=== PATIENT | male | born 1950 ===

== ENCOUNTER 2018-12-21 12:18 | Inpatient (IN) | payer MEDICARE, OTHER ==
[2018-12-21 13:23] LABS: BASO # 0.1 K/uL (0.0-0.2); BASO % 0.5 % (0.0-2.0); EOS % 0.3 % (0.0-4.0); LYMPH # 1.2 K/uL (1.0-4.3); LYMPH % 8.8 % (20.0-40.0); MEAN CELL VOLUME 87.7 fl (80.0-94.0); MEAN CORPUSCULAR HEMOGLOBIN 30.7 pg (27.0-31.0); MEAN PLATELET VOLUME 8.6 fl (7.2-11.7); MONO # 0.8 K/uL (0.0-0.8); MONO % 6.1 % (0.0-10.0); NEUT % 84.3 % (50.0-75.0); PLATELET COUNT 422 K/uL (130-400); RBC 5.53 Mil/uL (4.40-5.90); RED CELL DISTRIBUTION WIDTH 13.6 % (11.5-14.5); WHITE BLOOD COUNT 13.1 K/uL (4.8-10.8)
[2018-12-21 13:23] LABS: VENOUS BLOOD GAS BASE EXCESS 4.4 mmol/L (0.0-2.0); VENOUS BLOOD GAS PCO2 55 mmHg (40-60); VENOUS BLOOD GAS PO2 21 mm/Hg (30-55); VENOUS BLOOD PH 7.37 (7.32-7.43)
[2018-12-21] MEDS: Sodium Chloride 0.9% 1,000 ML IV SCH ×3 (13:28→21:53)
--- NOTE | 2018-12-21 13:34 | ED PDOC ---
HPI: Abdomen Time Seen by Provider: 12/21/18 13:28 Chief Complaint (Nursing): Abdominal Pain Chief Complaint (Provider): Abdominal Pain History Per: Family History/Exam Limitations: no limitations Onset/Duration Of Symptoms: Days Current Symptoms Are (Timing): Still Present Associated Symptoms: Loss Of Appetite Additional Complaint(s): 68 year old male with a past medical history of CVA, aphasia, hypertension, diabetes, and hypercholesterolemia who is presenting to the ED with sister for evaluation. Patient is nonverbal at baseline and history id provided by sister who reports 2.5 weeks of vomiting and diarrhea associated with decreased a ppetite, 15lb weight loss, and alcohol consumption. Patient is noted to live by himself and due to aphasia and stubbornness, doesnt tell anyone when things are wrong. Sister adds that patient was seen by PMD today and was sent to the ED. She also admits that patient has had a wet cough for a few months and PMD was concerned for fluid in the lungs. Patient offers no history and denies all complaints at this time. Of note, sister states that patient is noncompliant with his medications. PMD: Dr. Heaton Past Medical History Reviewed: Historical Data, Nursing Documentation, Vital Signs Vital Signs: Last Vital Signs Temp 98.0 F 12/21/18 12:35 Pulse 87 12/21/18 12:35 Resp 16 12/21/18 12:35 BP 162/94 H 12/21/18 12:35 Pulse Ox 96 12/21/18 12:35 - Medical History PMH: Arthritis, HTN, Hypercholesterolemia, TIA Denies: Colonic Polyps - Surgical History Surgical History: Tonsillectomy - Family History Family History: States: Unknown Family Hx - Social History Current smoker - smoking cessation education provided: No Alcohol: Social Drugs: Denies - Home Medications Home Medications: Ambulatory Orders Medication Instructions Recorded Aspirin [Ecotrin] 81 mg PO DAILY 02/13/16 Simvastatin 40 mg PO HS 02/13/16 metFORMIN [glucOPHAGE] 500 mg PO BID 02/13/16 Atenolol/Chlorthalidone [Tenoretic 1 tab PO DAILY 12/21/18 50 Tablet] Ergocalciferol (Vitamin D2) 50,000 unit PO QWK 12/21/18 [Vitamin D2] Fenofibrate,Micronized 200 mg PO DAILY 12/21/18 [Fenofibrate] Ferrous Sulfate [Feosol] 325 mg PO BID 12/21/18 Icosapent Ethyl [Vascepa] 2 gm PO DAILY 12/21/18 Levocetirizine Dihydrochloride 5 mg PO HS 12/21/18 [Xyzal] Losartan [Cozaar] 50 mg PO DAILY 12/21/18 Multivitamin [Multi-Vitamin Daily] 1 tab PO DAILY 12/21/18 Ondansetron [Zofran Tab] 4 mg PO DAILY PRN 12/21/18 Sertraline [Zoloft] 50 mg PO DAILY 12/21/18 amLODIPine [Norvasc] 10 mg PO DAILY 12/21/18 - Allergies Allergies/Adverse Reactions: Allergies Allergy/AdvReac Type Severity Reaction Status Date / Time Penicillins Allergy SHORTNESS Verified 12/21/18 12:35 OF BREATH Review of Systems ROS Statement: Except As Marked, All Systems Reviewed And Found Negative Review Of Systems: ROS cannot be obtained secondary to pt's inabilty to answer questions. (patient is nonverbal and offers no complaints, is a poor historian) Gastrointestinal: Positive for: Vomiting, Diarrhea Physical Exam - Reviewed Nursing Documentation Reviewed: Yes Vital Signs Reviewed: Yes - Physical Exam Comments: GENERAL APPEARANCE: Patient is awake, alert, oriented x 3, in no acute distress. Patient is also nonverbal at baseline SKIN: Warm, dry; (-) cyanosis HEAD: (-) scalp swelling, (-) scalp tenderness. EYES: (-) conjunctival pallor, (-) scleral icterus, (-) nystagmus. ENMT: Mucous membranes moist. Airway patent: (-) stridor. NECK: (-) tenderness, (-) stiffness, (-) lymphadenopathy. HEART AND CARDIOVASCULAR: (-) irregularity; (-) murmur, (-) gallop. CHEST AND RESPIRATORY: (-) rales, (-) rhonchi, (-) wheezes; breath sounds equal. ABDOMEN: Soft, (-) distention, (-) tenderness, (-) guarding. (+) mild tenderness Left Lower Quadrant NEURO AND PSYCH: Mental status as above. tablet repair: Intact. Pupils equal and reactive; EOMI; (-) facial asymmetry; tongue and uvula midline. Strength and DTRs symmetric. - Laboratory Results Result Diagrams: 12/21/18 13:10 12/21/18 13:10 Lab Results: pO2 21 mm/Hg (30-55) L 12/21/18 13:09 VBG pH 7.37 (7.32-7.43) 12/21/18 13:09 VBG pCO2 55 mmHg (40-60) 12/21/18 13:09 VBG HCO3 26.0 mmol/L 12/21/18 13:09 VBG Total CO2 33.5 mmol/L (22-28) H 12/21/18 13:09 VBG O2 Sat (Calc) 36.3 % (40-65) L 12/21/18 13:09 VBG Base Excess 4.4 mmol/L (0.0-2.0) H 12/21/18 13:09 VBG Potassium 4.1 mmol/L (3.6-5.2) 12/21/18 13:09 Sodium 132.0 mmol/L (132-148) 12/21/18 13:09 Chloride 94.0 mmol/L (98-107) L 12/21/18 13:09 Glucose 164 mg/dL (75-110) H 12/21/18 13:09 Lactate 1.6 mmol/L (0.7-2.1) 12/21/18 13:09 FiO2 21.0 % 12/21/18 13:09 - ECG O2 Sat by Pulse Oximetry: 96 (RA) Pulse Ox Interpretation: Normal Medical Decision Making Medical Decision Making: Time: 13:10 Plan: --VBG --CT Abd/Pelvis --EKG --Alcohol Serum --CMP --Lipase --CBC --CXR --IV Fluids --Urinalysis Spoke to Dr. Heaton who agrees with workup and states he will be most likely admitted and to call back once results are back. 14:12 CXR HISTORY: cough COMPARISON: None available. TECHNIQUE: Chest PA and lateral, 2 views FINDINGS: LUNGS: No focal consolidation. Please note that chest x-ray has limited sensitivity for the detection of pulmonary masses. PLEURA: No significant pleural effusion identified. No definite pneumothorax . CARDIOVASCULAR: Heart size appears within normal limits. Aortic ectasia. Atherosclerotic calcifications of the aortic knob. OSSEOUS STRUCTURES: No acute osseous abnormality identified. VISUALIZED UPPER ABDOMEN: Unremarkable. OTHER FINDINGS: None. IMPRESSION: No focal consolidation identified. 1500 Date of service: 12/21/2018 PROCEDURE: CT Abdomen and Pelvis with contrast HISTORY: n/v/d LLQ tenderness COMPARISON: None. TECHNIQUE: Contrast dose: 100 mL of Omnipaque 300 Radiation dose: Total exam DLP = 359.1 mGy-cm. This CT exam was performed using one or more of the following dose reduction techniques: Automated exposure control, adjustment of the mA and/or kV according to patient size, and/or use of iterative reconstruction technique. FINDINGS: LOWER THORAX: Large hiatal hernia noted. LIVER: Diffuse hepatic steatosis suggested. No gross lesion or ductal dilatation. GALLBLADDER AND BILE DUCTS: Unremarkable. PANCREAS: Bordering the pancreas are circumferential duodenal mural thickening and Lisa duodenal/Lisa pancreatic fat edema/inflammatory changes. Neoplastic and/or infectious inflammatory etiology of this gastric antral-duodenal segment needs to be considered. The 2nd and 3rd duodenal segments are also dilated. No more distal obstructing mass at the duodenal jejunal junction is seen. No gross lesion or ductal dilatation. SPLEEN: Unremarkable. ADRENALS: Unremarkable. No mass. A 2 cm left posterior renal cortical cyst is suggested. A sub cm hypodensity in the midpole the right kidney small to accurately characterize is also noted. This also may be a renal cyst. An ultrasound may be helpful in its further characterisation. KIDNEYS AND URETERS: No hydronephrosis. VASCULATURE: Unremarkable. No aortic aneurysm. No aortic atherosclerotic calcification or mural plaque present. BOWEL: Please note the above regarding the gastric antrum and and blending duodenal segments where circumferential mural thickening and Lisa mural edema/an inflammatory like changes are suggested. No complete obstruction seen. However mild partial obstruction from the mural changes at the approximate the 3rd duodenal segment with the 4 segment is a consideration. Rectosigmoid redundancy. Moderate stool in the right colon. Portion of the appendix and the distal small bowel loops are within a right groin herniated sac. Attention of the herniated sac is not fully visualized the most inferior aspect-this is going towards the right scrotal sac. There appears to be an after fair in and E fair in loop here. There is also some fluid within this right groin herniated sac. No proximal dilatation is seen to suggest obstruction. The neck of the right groin hernia appears wide at 3.5 cm on coronal series 601, image 42 is estimated to be approximately 2 cm wide in the left groin. A small knuckle of large bowel protrudes into a smaller left groin hernia (axial series 3, image 141) APPENDIX: The appendix is within a herniated right groin sac. No gross appendiceal inflammatory changes are present. However there is some fluid in the right Groin herniated sac. PERITONEUM: There is some fluid in the right groin hernia sac.. No free air. LYMPH NODES: Unremarkable. No enlarged lymph nodes. BLADDER: Unremarkable. REPRODUCTIVE: Prostate is mildly prominent with some amorphous calcifications within it. Prostate is approximately 3.7 x 5.0 cm. There also coarse singular peripheral calcifications here present. And some phleboliths present. Seminal vesicles appear unremarkable. The bladder is moderately distended but otherwise unremarkable. The prominent prostate and extends indents the bladder base. BONES: No acute fracture. Deformity of the right hip compatible with advanced right arthrosis with or without dysplasia. Some old trauma here and posttraumatic arthrosis is not excluded. Loose bodies in degenerative debris here are suggested. Mild thoracic spondylosis noted. OTHER FINDINGS: None. IMPRESSION: Diffuse blending gastric antrum and duodenal circumferential mural thickening with the mucosal edema and Lisa antral and Lisa duodenal inflammatory changes in the surrounding fat. Infectious/inflammatory and neoplastic etiologies are considerations. Large right groin hernia with fluid within the sac. Most of its contents appear to relate to Afrin E fair in small bowel loops. A portion of a grossly normal appearing appendix is also however included in this herniated sac. Outside the herniated sac no bowel obstruction seen. Moderate stool in the right colon noted. Smaller left groin hernia with knuckle of left colon protruding into it. Left renal cysts. Probable smaller sub cm right renal cyst. Other findings as above. Comments consider GI consult for further evaluation of the gastric antral-du odenal findings. Also consider surgical consultation for the groin hernias especially that on the right. Comments: Study marked for PA review . 15:[address] Olson, pt to be admitted with inpatient surgery and GI consults inpatient [address] Heaton, states hospitalist is on for him and to admit to them spoke to hospitalist, accepts pt for admission Discussed results, diagnosis, treatment, plan for admission with pt and pt's sister who are understanding and in agreement pt with elevated BP has not been taking meds, ordered pt's home meds Scribe Attestation: Documented by Adriana Rosado, acting as a scribe for Pastor Jerome. Provider Scribe Attestation: All medical record entries made by the Scribe were at my direction and personally dictated by me. I have reviewed the chart and agree that the record accurately reflects my personal performance of the history, physical exam, medical decision making, and the department course for this patient. I have also personally directed, reviewed, and agree with the discharge instructions and disposition. Disposition - Clinical Impression Clinical Impression: Failure to thrive, Hernia, Abdominal pain - Patient ED Disposition Is Patient to be Admitted: Yes Doctor Will See Patient In The: Hospital Counseled Patient/Family Regarding: Studies Performed, Diagnosis - Disposition Disposition Time: 15:10 Condition: FAIR - Pt Status Changed To: Hospital Disposition Of: Inpatient - Admit Certification Admit to Inpatient:: After my assessment, the patient will require hospitalization for at least two midnights. This is because of the severity of symptoms shown, intensity of services needed, and/or the medical risk in this patient being treated as an outpatient. - POA Present On Arrival: None
[2018-12-21 13:35] LABS: ALB/GLOB RATIO 1.2 (1.0-2.1); ALBUMIN 4.5 g/dL (3.5-5.0); ALT/SGPT 35 U/L (21-72); AST/SGOT 22 U/L (17-59); BLOOD UREA NITROGEN 17 mg/dl (9-20); GFR NON-AFRICAN AMERICAN > 60; LIPASE 137 U/L (23-300)
[2018-12-21] MEDS ORDERED: Iohexol 300 100 ML IJ ONE (13:49)
[2018-12-21] MEDS ORDERED: Sodium Chloride 0.9% 50 ML IV ONE (13:49)
--- NOTE | 2018-12-21 14:11 | RAD ---
HISTORY: cough COMPARISON: None available. TECHNIQUE: Chest PA and lateral, 2 views FINDINGS: LUNGS: No focal consolidation. Please note that chest x-ray has limited sensitivity for the detection of pulmonary masses. PLEURA: No significant pleural effusion identified. No definite pneumothorax . CARDIOVASCULAR: Heart size appears within normal limits. Aortic ectasia. Atherosclerotic calcifications of the aortic knob. OSSEOUS STRUCTURES: No acute osseous abnormality identified. VISUALIZED UPPER ABDOMEN: Unremarkable. OTHER FINDINGS: None. IMPRESSION: No focal consolidation identified.
--- NOTE | 2018-12-21 14:43 | CT ---
Date of service: 12/21/2018 PROCEDURE: CT Abdomen and Pelvis with contrast HISTORY: n/v/d LLQ tenderness COMPARISON: None. TECHNIQUE: Contrast dose: 100 mL of Omnipaque 300 Radiation dose: Total exam DLP = 359.1 mGy-cm. This CT exam was performed using one or more of the following dose reduction techniques: Automated exposure control, adjustment of the mA and/or kV according to patient size, and/or use of iterative reconstruction technique. FINDINGS: LOWER THORAX: Large hiatal hernia noted. LIVER: Diffuse hepatic steatosis suggested. No gross lesion or ductal dilatation. GALLBLADDER AND BILE DUCTS: Unremarkable. PANCREAS: Bordering the pancreas are circumferential duodenal mural thickening and Lisa duodenal/Lisa pancreatic fat edema/inflammatory changes. Neoplastic and/or infectious inflammatory etiology of this gastric antral-duodenal segment needs to be considered. The 2nd and 3rd duodenal segments are also dilated. No more distal obstructing mass at the duodenal jejunal junction is seen. No gross lesion or ductal dilatation. SPLEEN: Unremarkable. ADRENALS: Unremarkable. No mass. A 2 cm left posterior renal cortical cyst is suggested. A sub cm hypodensity in the midpole the right kidney small to accurately characterize is also noted. This also may be a renal cyst. An ultrasound may be helpful in its further characterisation. KIDNEYS AND URETERS: No hydronephrosis. VASCULATURE: Unremarkable. No aortic aneurysm. No aortic atherosclerotic calcification or mural plaque present. BOWEL: Please note the above regarding the gastric antrum and and blending duodenal segments where circumferential mural thickening and Lisa mural edema/an inflammatory like changes are suggested. No complete obstruction seen. However mild partial obstruction from the mural changes at the approximate the 3rd duodenal segment with the 4 segment is a consideration. Rectosigmoid redundancy. Moderate stool in the right colon. Portion of the appendix and the distal small bowel loops are within a right groin herniated sac. Attention of the herniated sac is not fully visualized the most inferior aspect-this is going towards the right scrotal sac. There appears to be an after fair in and E fair in loop here. There is also some fluid within this right groin herniated sac. No proximal dilatation is seen to suggest obstruction. The neck of the right groin hernia appears wide at 3.5 cm on coronal series 601, image 42 is estimated to be approximately 2 cm wide in the left groin. A small knuckle of large bowel protrudes into a smaller left groin hernia (axial series 3, image 141) APPENDIX: The appendix is within a herniated right groin sac. No gross appendiceal inflammatory changes are present. However there is some fluid in the right Groin herniated sac. PERITONEUM: There is some fluid in the right groin hernia sac.. No free air. LYMPH NODES: Unremarkable. No enlarged lymph nodes. BLADDER: Unremarkable. REPRODUCTIVE: Prostate is mildly prominent with some amorphous calcifications within it. Prostate is approximately 3.7 x 5.0 cm. There also coarse singular peripheral calcifications here present. And some phleboliths present. Seminal vesicles appear unremarkable. The bladder is moderately distended but otherwise unremarkable. The prominent prostate and extends indents the bladder base. BONES: No acute fracture. Deformity of the right hip compatible with advanced right arthrosis with or without dysplasia. Some old trauma here and posttraumatic arthrosis is not excluded. Loose bodies in degenerative debris here are suggested. Mild thoracic spondylosis noted. OTHER FINDINGS: None. IMPRESSION: Diffuse blending gastric antrum and duodenal circumferential mural thickening with the mucosal edema and Lisa antral and Lisa duodenal inflammatory changes in the surrounding fat. Infectious/inflammatory and neoplastic etiologies are considerations. Large right groin hernia with fluid within the sac. Most of its contents appear to relate to Afrin E fair in small bowel loops. A portion of a grossly normal appearing appendix is also however included in this herniated sac. Outside the herniated sac no bowel obstruction seen. Moderate stool in the right colon noted. Smaller left groin hernia with knuckle of left colon protruding into it. Left renal cysts. Probable smaller sub cm right renal cyst. Other findings as above. Comments consider GI consult for further evaluation of the gastric antral-duodenal findings. Also consider surgical consultation for the groin hernias especially that on the right. Comments: Study marked for PA review .
[2018-12-21 15:16] LABS: BANDS 1 % (0-2); LYMPHOCYTE 10 % (20-50); MONOCYTE 8 % (0-10); NEUTROPHIL 81 % (42-75); PLATELET ESTIMATE NORMAL (NORMAL); TOTAL CELLS COUNTED 100
[2018-12-21] MEDS ORDERED: Ergocalciferol 50,000 Intl Units Cap PO SCH (17:00)
[2018-12-21] MEDS: Insulin Regular 100 units/ml SC SCH ×2 (17:36→23:49)
--- NOTE | 2018-12-21 17:41 | CP.PCM.HP ---
History of Present Illness - History of Present Illness History of Present Illness: Pt is a 68 yo M with hx of CVA, expressive aphasia, HTN, DM HLD, alcohol abuse admitted due to abdominal candi and failure to thrive . Hx limited by patients expressive aphasia. Reports vomiting and diarrhea last had on wednesday,decreased PO intake, and a nonproductive cough. Pt states he has not been drinking , the family was concerned that he was drinking alcohol over the last 2.5weeks, and had 15 lb weight loss. Pt was sent here by Dr. Nayla Salinas. Denies F/C/CP/SOB/N/V/D/C/ or dysuria. PMD: Shara Heaton PMHx: CVA, expressive aphasia, HTN, DM HLD, alcohol abuse Allergies: PCN Fam hx: Denies Social Hx: alcohol (reports last drink in oct), Quit smoking in Sep, denies drug use Surg Hx: R inguinal repair 1957 Code status: Full code Present on Admission - Present on Admission Any Indicators Present on Admission: No History of DVT/PE: No History of Uncontrolled Diabetes: No Urinary Catheter: No Decubitus Ulcer Present: No Review of Systems - Respiratory Respiratory: Cough (non productive) - Gastrointestinal Gastrointestinal: Nausea, Vomiting Past Patient History - Past Medical History & Family History Past Medical History?: Yes - Past Social History Smoking Status: Former Smoker Alcohol: Social Drugs: Denies Home Situation {Lives}: Alone - CARDIAC Hx Hypercholesterolemia: Yes Hx Hypertension: Yes - NEUROLOGICAL Hx Transient Ischemic Attacks (TIA): Yes - ENDOCRINE/METABOLIC Hx Endocrine Disorders: Yes Hx Diabetes Mellitus Type 2: Yes - MUSCULOSKELETAL/RHEUMATOLOGICAL Hx Arthritis: Yes - GASTROINTESTINAL Hx Gastrointestinal Disorders: No - PSYCHIATRIC Hx Substance Use: No - SURGICAL HISTORY Hx Tonsillectomy: Yes - ANESTHESIA Hx Anesthesia: Yes Hx Anesthesia Reactions: No Hx Malignant Hyperthermia: No Meds Allergies/Adverse Reactions: Allergies Allergy/AdvReac Type Severity Reaction Status Date / Time Penicillins Allergy SHORTNESS Verified 12/21/18 12:35 OF BREATH Physical Exam - Constitutional Appears: Non-toxic, No Acute Distress - Head Exam Head Exam: ATRAUMATIC, NORMAL INSPECTION - Eye Exam Eye Exam: EOMI - ENT Exam ENT Exam: Mucous Membranes Moist - Respiratory Exam Respiratory Exam: Clear to Auscultation Bilateral. absent: Rales, Rhonchi, Wheezes - Cardiovascular Exam Cardiovascular Exam: RRR, +S1, +S2 - GI/Abdominal Exam GI & Abdominal Exam: Hernia (palpated in RLQ), Normal Bowel Sounds, Soft, Tenderness (Mild diffuse). absent: Guarding, Rebound, Rigid Additional comments: R sided inguinal horizontal scar - Extremities Exam Extremities exam: Positive for: normal inspection - Neurological Exam Neurological exam: Alert, Oriented x3 (To person, place and time ) Results - Vital Signs Recent Vital Signs: Last Vital Signs Temp 98 F 12/21/18 17:15 Pulse 72 12/21/18 17:15 Resp 19 12/21/18 17:15 BP 180/81 H 12/21/18 17:15 Pulse Ox 97 12/21/18 17:15 - Labs Result Diagrams: 12/21/18 13:10 12/21/18 13:10 Labs: Laboratory Results - last 24 hr 12/21/18 12/21/18 12/21/18 13:09 13:10 13:10 WBC 13.1 H RBC 5.53 Hgb 17.0 Hct 48.5 MCV 87.7 MCH 30.7 MCHC 35.0 RDW 13.6 Plt Count 422 H MPV 8.6 Neut % (Auto) 84.3 H Lymph % (Auto) 8.8 L [place] % (Auto) 6.1 Eos % (Auto) 0.3 Baso % (Auto) 0.5 Neut # (Auto) 11.0 H Lymph # (Auto) 1.2 [place] # (Auto) 0.8 Eos # (Auto) 0.0 Baso # (Auto) 0.1 Neutrophils % (Manual) 81 H Band Neutrophils % 1 Lymphocytes % (Manual) 10 L Monocytes % (Manual) 8 Platelet Estimate Normal RBC Morphology Normal pO2 21 L VBG pH 7.37 VBG pCO2 55 VBG HCO3 26.0 VBG Total CO2 33.5 H VBG O2 Sat (Calc) 36.3 L VBG Base Excess 4.4 H VBG Potassium 4.1 Sodium 132.0 136 Chloride 94.0 L 95 L Glucose 164 H Lactate 1.6 FiO2 21.0 Potassium 3.9 Carbon Dioxide 26 Anion Gap 19 BUN 17 Creatinine 0.9 Est GFR ( Amer) > 60 Est GFR (Non-Af Amer) > 60 POC Glucose (mg/dL) Random Glucose 166 H Calcium 10.0 Total Bilirubin 0.6 AST 22 ALT 35 Alkaline Phosphatase 79 Troponin I Total Protein 8.1 Albumin 4.5 Globulin 3.6 Albumin/Globulin Ratio 1.2 Lipase 137 Venous Blood Potassium 4.1 Alcohol, Quantitative < 10 12/21/18 12/21/18 12/21/18 13:39 13:51 17:26 WBC RBC Hgb Hct MCV MCH MCHC RDW Plt Count MPV Neut % (Auto) Lymph % (Auto) [place] % (Auto) Eos % (Auto) Baso % (Auto) Neut # (Auto) Lymph # (Auto) [place] # (Auto) Eos # (Auto) Baso # (Auto) Neutrophils % (Manual) Band Neutrophils % Lymphocytes % (Manual) Monocytes % (Manual) Platelet Estimate RBC Morphology pO2 VBG pH VBG pCO2 VBG HCO3 VBG Total CO2 VBG O2 Sat (Calc) VBG Base Excess VBG Potassium Sodium Chloride Glucose Lactate FiO2 Potassium Carbon Dioxide Anion Gap BUN Creatinine Est GFR ( Amer) Est GFR (Non-Af Amer) POC Glucose (mg/dL) 150 H 137 H Random Glucose Calcium Total Bilirubin AST ALT Alkaline Phosphatase Troponin I < 0.0120 Total Protein Albumin Globulin Albumin/Globulin Ratio Lipase Venous Blood Potassium Alcohol, Quantitative Assessment & Plan - Assessment and Plan (Free Text) Assessment: Pt is a 68 yo M with hx of CVA, expressive aphasia, HTN, DM HLD, alcohol abuse admitted due to abdominal candi and Failure to thrive . Abdominal pain likely 2/2 to non incarcerated hernia or gastric antrum finding CT: Diffuse blending of gastric antrum and duodenal circumferential mural thickening with the mucosal edema, inflammatory changes in the surrounding fat. infectious/ inflammatory and neoplastic etiologies are considerations. Large R inguinal hernia with fluid within the sac of small bowel loops and appendix. Outside sac no obstruction seen . Small Left groin hernia, with L colon protruding into it. GI consulted- Dr. Tuttle- f/u reccs Surgey consulted- Dr. Palma- f/u reccs Tylenol for pain F/u BMP, CBC in AM Failure to thrive IVF's U/A ordered- f/u Cough non productive EKG CXR negative for consolidation Hx of CVA, expressive aphasia Speech eval ordered- f/u reccs Soft diet DM Insulin coverage Accucheck A1C, Lipids, -f/u Hx of Alcohol intake Urine drug screen Started thiamine and folate F/u B12, Folate, TSH, MG, Phos HLD Lipid panel f/u c/w home meds HTN chronic c/w home meds Diet Soft - dysphagia modified heart healthy DVT PPX Lovenox 40mg SC daily SCD's
[2018-12-21 18:03] LABS: URINE BILIRUBIN NEGATIVE (NEGATIVE); URINE BLOOD NEGATIVE (NEGATIVE); URINE CLARITY CLEAR (Clear); URINE COLOR YELLOW (YELLOW); URINE GLUCOSE (UA) NEG (NEGATIVE); URINE LEUKOCYTE ESTERASE NEG Leu/uL (Negative); URINE PROTEIN NEGATIVE (NEGATIVE); URINE UROBILINOGEN 0.2-1.0 mg/dL (0.2-1.0)
--- NOTE | 2018-12-21 19:12 | CP.PCM.CON ---
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 Patient describes pain as intermittent and similar to previous pain prior to his right inguinal hernia repair 4 years ago. Patient additionally endorses diarrhea over the weekend. last colonoscopy unknown.12 point ROS otherwise negative PMD: Sudarshan, Sameh PMHx: CVA, expressive aphasia, HTN, DM HLD, alcohol abuse PSH: [place] open 2013 Allergies: PCN Fam hx: Denies Social Hx: alcohol (reports last drink in oct), Quit smoking in Sep, denies drug use Review of Systems - Review of Systems All systems: reviewed and no additional remarkable complaints except (as per H PI) Past Patient History - Past Medical History & Family History Past Medical History?: Yes - Past Social History Smoking Status: Former Smoker Alcohol: Social Drugs: Denies Home Situation {Lives}: Alone - CARDIAC Hx Hypercholesterolemia: Yes Hx Hypertension: Yes - NEUROLOGICAL Hx Transient Ischemic Attacks (TIA): Yes - ENDOCRINE/METABOLIC Hx Endocrine Disorders: Yes Hx Diabetes Mellitus Type 2: Yes - MUSCULOSKELETAL/RHEUMATOLOGICAL Hx Arthritis: Yes - GASTROINTESTINAL Hx Gastrointestinal Disorders: No - PSYCHIATRIC Hx Substance Use: No - SURGICAL HISTORY Hx Tonsillectomy: Yes - ANESTHESIA Hx Anesthesia: Yes Hx Anesthesia Reactions: No Hx Malignant Hyperthermia: No Meds Allergies/Adverse Reactions: Allergies Allergy/AdvReac Type Severity Reaction Status Date / Time Penicillins Allergy SHORTNESS Verified 12/21/18 12:35 OF BREATH - Medications Medications: Current Medications Acetaminophen (Tylenol 325mg Tab) 650 mg PO Q6 PRN PRN Reason: Pain, Mild (1-3) Acetaminophen (Tylenol 325mg Tab) 650 mg PO Q6 PRN PRN Reason: Fever >100.4 F Amlodipine Besylate (Norvasc) 10 mg PO DAILY [facility] Aspirin (Ecotrin) 81 mg PO DAILY [facility] Atenolol (Tenormin) 50 mg PO DAILY [facility] Atorvastatin Calcium (Lipitor) 20 mg PO HS [facility] Chlorthalidone (Hygroton) 25 mg PO DAILY [facility] Enoxaparin Sodium (Lovenox) 40 mg SC DAILY [facility]; Protocol Ergocalciferol (Drisdol 50,000 Intl Units Cap) 1 cap PO QWK [facility] Fenofibrate (Tricor) 145 mg PO DAILY [facility] Ferrous Sulfate (Feosol) 325 mg PO BID [facility] Last Admin: 12/21/18 18:14 Dose: 325 mg Folic Acid (Folic Acid) 1 mg PO DAILY [facility] Sodium Chloride (Sodium Chloride 0.9%) 1,000 mls @ 100 mls/hr IV .Q10H [facility] Insulin Human Regular (Humulin R) 0 units SC ACCU-CHECK [facility]; Protocol Last Admin: 12/21/18 17:36 Dose: Not Given Losartan Potassium (Cozaar) 50 mg PO DAILY [facility] Multivitamins/Minerals (Therapeutic-M Tab) 1 tab PO DAILY [facility] Ondansetron HCl (Zofran Inj) 4 mg IVP Q6 PRN PRN Reason: Nausea/Vomiting Pantoprazole Sodium (Protonix Ec Tab) 40 mg PO DAILY [facility] Sertraline HCl (Zoloft) 50 mg PO DAILY [facility] Thiamine HCl (Vitamin B1 Tab) 100 mg PO DAILY [facility] Physical Exam - Constitutional Appears: Well, Non-toxic, No Acute Distress - Head Exam Head Exam: ATRAUMATIC, NORMOCEPHALIC - Eye Exam Eye Exam: EOMI - ENT Exam ENT Exam: Mucous Membranes Moist - Respiratory Exam Respiratory Exam: NORMAL BREATHING PATTERN - Cardiovascular Exam Cardiovascular Exam: REGULAR RHYTHM - GI/Abdominal Exam GI & Abdominal Exam: Soft, Tenderness (RLQ). absent: Distended, Guarding, Rigid - Extremities Exam Extremities exam: Negative for: calf tenderness, pedal edema - Neurological Exam Neurological exam: Alert, Oriented x3 - Psychiatric Exam Psychiatric exam: Normal Affect, Normal Mood - Skin Skin Exam: Dry, Intact, Normal Color, Warm Results - Vital Signs Recent Vital Signs: Last Vital Signs Temp 98 F 12/21/18 18:15 Pulse 88 12/21/18 18:14 Resp 18 12/21/18 18:15 BP 170/90 H 12/21/18 18:14 Pulse Ox 99 12/21/18 18:15 - Labs Result Diagrams: 12/21/18 13:10 12/21/18 13:10 Labs: Laboratory Results - last 24 hr 12/21/18 12/21/18 12/21/18 13:09 13:10 13:10 WBC 13.1 H RBC 5.53 Hgb 17.0 Hct 48.5 MCV 87.7 MCH 30.7 MCHC 35.0 RDW 13.6 Plt Count 422 H MPV 8.6 Neut % (Auto) 84.3 H Lymph % (Auto) 8.8 L [place] % (Auto) 6.1 Eos % (Auto) 0.3 Baso % (Auto) 0.5 Neut # (Auto) 11.0 H Lymph # (Auto) 1.2 [place] # (Auto) 0.8 Eos # (Auto) 0.0 Baso # (Auto) 0.1 Neutrophils % (Manual) 81 H Band Neutrophils % 1 Lymphocytes % (Manual) 10 L Monocytes % (Manual) 8 Platelet Estimate Normal RBC Morphology Normal pO2 21 L VBG pH 7.37 VBG pCO2 55 VBG HCO3 26.0 VBG Total CO2 33.5 H VBG O2 Sat (Calc) 36.3 L VBG Base Excess 4.4 H VBG Potassium 4.1 Sodium 132.0 136 Chloride 94.0 L 95 L Glucose 164 H Lactate 1.6 FiO2 21.0 Potassium 3.9 Carbon Dioxide 26 Anion Gap 19 BUN 17 Creatinine 0.9 Est GFR ( Amer) > 60 Est GFR (Non-Af Amer) > 60 POC Glucose (mg/dL) Random Glucose 166 H Calcium 10.0 Total Bilirubin 0.6 AST 22 ALT 35 Alkaline Phosphatase 79 Troponin I Total Protein 8.1 Albumin 4.5 Globulin 3.6 Albumin/Globulin Ratio 1.2 Lipase 137 Venous Blood Potassium 4.1 Urine Color Urine Clarity Urine pH Ur Specific [place] Urine Protein Urine Glucose (UA) Urine Ketones Urine Blood Urine Nitrate Urine Bilirubin Urine Urobilinogen Ur Leukocyte Esterase Urine RBC (Auto) Urine Microscopic WBC Alcohol, Quantitative < 10 12/21/18 12/21/18 12/21/18 13:39 13:51 17:26 WBC RBC Hgb Hct MCV MCH MCHC RDW Plt Count MPV Neut % (Auto) Lymph % (Auto) [place] % (Auto) Eos % (Auto) Baso % (Auto) Neut # (Auto) Lymph # (Auto) [place] # (Auto) Eos # (Auto) Baso # (Auto) Neutrophils % (Manual) Band Neutrophils % Lymphocytes % (Manual) Monocytes % (Manual) Platelet Estimate RBC Morphology pO2 VBG pH VBG pCO2 VBG HCO3 VBG Total CO2 VBG O2 Sat (Calc) VBG Base Excess VBG Potassium Sodium Chloride Glucose Lactate FiO2 Potassium Carbon Dioxide Anion Gap BUN Creatinine Est GFR ( Amer) Est GFR (Non-Af Amer) POC Glucose (mg/dL) 150 H 137 H Random Glucose Calcium Total Bilirubin AST ALT Alkaline Phosphatase Troponin I < 0.0120 Total Protein Albumin Globulin Albumin/Globulin Ratio Lipase Venous Blood Potassium Urine Color Urine Clarity Urine pH Ur Specific [place] Urine Protein Urine Glucose (UA) Urine Ketones Urine Blood Urine Nitrate Urine Bilirubin Urine Urobilinogen Ur Leukocyte Esterase Urine RBC (Auto) Urine Microscopic WBC Alcohol, Quantitative 12/21/18 17:31 WBC RBC Hgb Hct MCV MCH MCHC RDW Plt Count MPV Neut % (Auto) Lymph % (Auto) [place] % (Auto) Eos % (Auto) Baso % (Auto) Neut # (Auto) Lymph # (Auto) [place] # (Auto) Eos # (Auto) Baso # (Auto) Neutrophils % (Manual) Band Neutrophils % Lymphocytes % (Manual) Monocytes % (Manual) Platelet Estimate RBC Morphology pO2 VBG pH VBG pCO2 VBG HCO3 VBG Total CO2 VBG O2 Sat (Calc) VBG Base Excess VBG Potassium Sodium Chloride Glucose Lactate FiO2 Potassium Carbon Dioxide Anion Gap BUN Creatinine Est GFR ( Amer) Est GFR (Non-Af Amer) POC Glucose (mg/dL) Random Glucose Calcium Total Bilirubin AST ALT Alkaline Phosphatase Troponin I Total Protein Albumin Globulin Albumin/Globulin Ratio Lipase Venous Blood Potassium Urine Color Yellow Urine Clarity Clear Urine pH 6.0 Ur Specific [place] > 1.060 H Urine Protein Negative Urine Glucose (UA) Neg Urine Ketones Negative Urine Blood Negative Urine Nitrate Negative Urine Bilirubin Negative Urine Urobilinogen 0.2-1.0 Ur Leukocyte Esterase Neg Urine RBC (Auto) 1 Urine Microscopic WBC 1 Alcohol, Quantitative Assessment & Plan - Assessment and Plan (Free Text) Assessment: 68 M with RLQ abdominal pain, inguinal hernia and gatric/duodenal thickening on CT Plan: - Pain control - recommend GI evaluation of gastric findings - hernia reducible - pt may need referral to hernia specialist for reoperation and repair - SCD - protonix - CEA, CA19-9 - discussed with Dr. Sneed, PGY 1 - Date & Time Date: 12/21/18 Time: 15:30 <Charles Vargas - Last Filed: 12/22/18 08:07> Meds - Medications Medications: Current Medications Acetaminophen (Tylenol 325mg Tab) 650 mg PO Q6 PRN PRN Reason: Pain, Mild (1-3) Acetaminophen (Tylenol 325mg Tab) 650 mg PO Q6 PRN PRN Reason: Fever >100.4 F Amlodipine Besylate (Norvasc) 10 mg PO DAILY [facility] Aspirin (Ecotrin) 81 mg PO DAILY [facility] Atenolol (Tenormin) 50 mg PO DAILY [facility] Atorvastatin Calcium (Lipitor) 20 mg PO HS [facility] Last Admin: 12/21/18 23:49 Dose: 20 mg Chlorthalidone (Hygroton) 25 mg PO DAILY [facility] Enoxaparin Sodium (Lovenox) 40 mg SC DAILY [facility]; Protocol Ergocalciferol (Drisdol 50,000 Intl Units Cap) 1 cap PO QWK [facility] Fenofibrate (Tricor) 145 mg PO DAILY [facility] Ferrous Sulfate (Feosol) 325 mg PO BID [facility] Last Admin: 12/21/18 18:14 Dose: 325 mg Folic Acid (Folic Acid) 1 mg PO DAILY [facility] Sodium Chloride (Sodium Chloride 0.9%) 1,000 mls @ 100 mls/hr IV .Q10H [facility] Last Admin: 12/21/18 21:53 Dose: 100 mls/hr Insulin Human Regular (Humulin R) 0 units SC ACCU-CHECK [facility]; Protocol Last Admin: 12/22/18 07:32 Dose: Not Given Losartan Potassium (Cozaar) 50 mg PO DAILY [facility] Multivitamins/Minerals (Therapeutic-M Tab) 1 tab PO DAILY [facility] Ondansetron HCl (Zofran Inj) 4 mg IVP Q6 PRN PRN Reason: Nausea/Vomiting Pantoprazole Sodium (Protonix Ec Tab) 40 mg PO DAILY [facility] Sertraline HCl (Zoloft) 50 mg PO DAILY [facility] Thiamine HCl (Vitamin B1 Tab) 100 mg PO DAILY [facility] Results - Vital Signs Recent Vital Signs: Last Vital Signs Temp 98.3 F 12/21/18 23:58 Pulse 71 12/21/18 23:58 Resp 18 12/21/18 23:58 BP 159/81 H 12/21/18 23:58 Pulse Ox 96 12/21/18 23:58 - Labs Result Diagrams: 12/22/18 05:35 12/22/18 05:35 Labs: Laboratory Results - last 24 hr 12/21/18 12/21/18 12/21/18 13:09 13:10 13:10 WBC 13.1 H RBC 5.53 Hgb 17.0 Hct 48.5 MCV 87.7 MCH 30.7 MCHC 35.0 RDW 13.6 Plt Count 422 H MPV 8.6 Neut % (Auto) 84.3 H Lymph % (Auto) 8.8 L [place] % (Auto) 6.1 Eos % (Auto) 0.3 Baso % (Auto) 0.5 Neut # (Auto) 11.0 H Lymph # (Auto) 1.2 [place] # (Auto) 0.8 Eos # (Auto) 0.0 Baso # (Auto) 0.1 Neutrophils % (Manual) 81 H Band Neutrophils % 1 Lymphocytes % (Manual) 10 L Monocytes % (Manual) 8 Platelet Estimate Normal RBC Morphology Normal pO2 21 L VBG pH 7.37 VBG pCO2 55 VBG HCO3 26.0 VBG Total CO2 33.5 H VBG O2 Sat (Calc) 36.3 L VBG Base Excess 4.4 H VBG Potassium 4.1 Sodium 132.0 136 Chloride 94.0 L 95 L Glucose 164 H Lactate 1.6 FiO2 21.0 Potassium 3.9 Carbon Dioxide 26 Anion Gap 19 BUN 17 Creatinine 0.9 Est GFR ( Amer) > 60 Est GFR (Non-Af Amer) > 60 POC Glucose (mg/dL) Random Glucose 166 H Calcium 10.0 Phosphorus Magnesium Total Bilirubin 0.6 AST 22 ALT 35 Alkaline Phosphatase 79 Troponin I Total Protein 8.1 Albumin 4.5 Globulin 3.6 Albumin/Globulin Ratio 1.2 Triglycerides Cholesterol LDL Cholesterol Direct HDL Cholesterol Lipase 137 Vitamin B12 TSH 3rd Generation Venous Blood Potassium 4.1 Urine Color Urine Clarity Urine pH Ur Specific [place] Urine Protein Urine Glucose (UA) Urine Ketones Urine Blood Urine Nitrate Urine Bilirubin Urine Urobilinogen Ur Leukocyte Esterase Urine RBC (Auto) Urine Microscopic WBC Alcohol, Quantitative < 10 12/21/18 12/21/18 12/21/18 13:39 13:51 17:26 WBC RBC Hgb Hct MCV MCH MCHC RDW Plt Count MPV Neut % (Auto) Lymph % (Auto) [place] % (Auto) Eos % (Auto) Baso % (Auto) Neut # (Auto) Lymph # (Auto) [place] # (Auto) Eos # (Auto) Baso # (Auto) Neutrophils % (Manual) Band Neutrophils % Lymphocytes % (Manual) Monocytes % (Manual) Platelet Estimate RBC Morphology pO2 VBG pH VBG pCO2 VBG HCO3 VBG Total CO2 VBG O2 Sat (Calc) VBG Base Excess VBG Potassium Sodium Chloride Glucose Lactate FiO2 Potassium Carbon Dioxide Anion Gap BUN Creatinine Est GFR ( Amer) Est GFR (Non-Af Amer) POC Glucose (mg/dL) 150 H 137 H Random Glucose Calcium Phosphorus Magnesium Total Bilirubin AST ALT Alkaline Phosphatase Troponin I < 0.0120 Total Protein Albumin Globulin Albumin/Globulin Ratio Triglycerides Cholesterol LDL Cholesterol Direct HDL Cholesterol Lipase Vitamin B12 TSH 3rd Generation Venous Blood Potassium Urine Color Urine Clarity Urine pH Ur Specific [place] Urine Protein Urine Glucose (UA) Urine Ketones Urine Blood Urine Nitrate Urine Bilirubin Urine Urobilinogen Ur Leukocyte Esterase Urine RBC (Auto) Urine Microscopic WBC Alcohol, Quantitative 12/21/18 12/21/18 12/22/18 17:31 21:35 05:05 WBC RBC Hgb Hct MCV MCH MCHC RDW Plt Count MPV Neut % (Auto) Lymph % (Auto) [place] % (Auto) Eos % (Auto) Baso % (Auto) Neut # (Auto) Lymph # (Auto) [place] # (Auto) Eos # (Auto) Baso # (Auto) Neutrophils % (Manual) Band Neutrophils % Lymphocytes % (Manual) Monocytes % (Manual) Platelet Estimate RBC Morphology pO2 VBG pH VBG pCO2 VBG HCO3 VBG Total CO2 VBG O2 Sat (Calc) VBG Base Excess VBG Potassium Sodium Chloride Glucose Lactate FiO2 Potassium Carbon Dioxide Anion Gap BUN Creatinine Est GFR ( Amer) Est GFR (Non-Af Amer) POC Glucose (mg/dL) 129 H 95 Random Glucose Calcium Phosphorus Magnesium Total Bilirubin AST ALT Alkaline Phosphatase Troponin I Total Protein Albumin Globulin Albumin/Globulin Ratio Triglycerides Cholesterol LDL Cholesterol Direct HDL Cholesterol Lipase Vitamin B12 TSH 3rd Generation Venous Blood Potassium Urine Color Yellow Urine Clarity Clear Urine pH 6.0 Ur Specific [place] > 1.060 H Urine Protein Negative Urine Glucose (UA) Neg Urine Ketones Negative Urine Blood Negative Urine Nitrate Negative Urine Bilirubin Negative Urine Urobilinogen 0.2-1.0 Ur Leukocyte Esterase Neg Urine RBC (Auto) 1 Urine Microscopic WBC 1 Alcohol, Quantitative 12/22/18 12/22/18 05:35 05:35 WBC 11.7 H RBC 4.71 Hgb 14.3 D Hct 42.4 MCV 89.9 D MCH 30.3 MCHC 33.7 RDW 13.0 Plt Count 356 MPV 7.8 Neut % (Auto) 78.3 H Lymph % (Auto) 12.6 L [place] % (Auto) 7.1 Eos % (Auto) 1.1 Baso % (Auto) 0.9 Neut # (Auto) 9.2 H Lymph # (Auto) 1.5 [place] # (Auto) 0.8 Eos # (Auto) 0.1 Baso # (Auto) 0.1 Neutrophils % (Manual) Band Neutrophils % Lymphocytes % (Manual) Monocytes % (Manual) Platelet Estimate RBC Morphology pO2 VBG pH VBG pCO2 VBG HCO3 VBG Total CO2 VBG O2 Sat (Calc) VBG Base Excess VBG Potassium Sodium 133 Chloride 100 Glucose Lactate FiO2 Potassium 3.8 Carbon Dioxide 26 Anion Gap 11 BUN 10 Creatinine 0.7 L Est GFR ( Amer) > 60 Est GFR (Non-Af Amer) > 60 POC Glucose (mg/dL) Random Glucose 114 H Calcium 8.7 Phosphorus 3.1 Magnesium 1.9 Total Bilirubin AST ALT Alkaline Phosphatase Troponin I Total Protein Albumin Globulin Albumin/Globulin Ratio Triglycerides 146 Cholesterol 148 LDL Cholesterol Direct 93 HDL Cholesterol 27 L Lipase Vitamin B12 759 TSH 3rd Generation 1.15 Venous Blood Potassium Urine Color Urine Clarity Urine pH Ur Specific [place] Urine Protein Urine Glucose (UA) Urine Ketones Urine Blood Urine Nitrate Urine Bilirubin Urine Urobilinogen Ur Leukocyte Esterase Urine RBC (Auto) Urine Microscopic WBC Alcohol, Quantitative Assessment & Plan - Assessment and Plan (Free Text) Plan: All medical record entries made by the resident were at my direction. I have reviewed the chart and agree that the record accurately reflects my personal performance of the history, physical exam, and medical decision making.
--- NOTE | 2018-12-21 19:44 | CARD ---
APPROVED REPORT Date of service: 12/21/2018 EKG Measurement Heart [id number] <Conclusion> Sinus rhythm with short NE Inferior infarct, age undetermined Abnormal ECG
[2018-12-22 06:36] LABS: BASO # 0.1 K/uL (0.0-0.2); BASO % 0.9 % (0.0-2.0); EOS # 0.1 K/uL (0.0-0.7); EOS % 1.1 % (0.0-4.0); HEMOGLOBIN 14.3 g/dL (12.0-18.0); LYMPH # 1.5 K/uL (1.0-4.3); LYMPH % 12.6 % (20.0-40.0); MEAN CELL VOLUME 89.9 fl (80.0-94.0); MEAN CORPUSCULAR HEMOGLOBIN 30.3 pg (27.0-31.0); MEAN CORPUSCULAR HGB CONC 33.7 g/dL (33.0-37.0); MEAN PLATELET VOLUME 7.8 fl (7.2-11.7); MONO # 0.8 K/uL (0.0-0.8); MONO % 7.1 % (0.0-10.0); NEUT # 9.2 K/uL (1.8-7.0); NEUT % 78.3 % (50.0-75.0); RBC 4.71 Mil/uL (4.40-5.90); WHITE BLOOD COUNT 11.7 K/uL (4.8-10.8)
[2018-12-22 06:46] LABS: LDL CHOLESTEROL 93 mg/dL (0-129)
[2018-12-22 07:04] LABS: BLOOD UREA NITROGEN 10 mg/dl (9-20); CALCIUM 8.7 mg/dL (8.4-10.2); GFR NON-AFRICAN AMERICAN > 60; HDL CHOLESTEROL 27 MG/DL (30-70)
[2018-12-22] MEDS: Insulin Regular 100 units/ml SC SCH ×4 (07:32→23:00)
--- NOTE | 2018-12-22 07:49 | CP.PCM.PN ---
<Navin Gutierrez - Last Filed: 12/22/18 10:18> Subjective - Date & Time of Evaluation Date of Evaluation: 12/22/18 Time of Evaluation: 07:47 - Subjective Subjective: Surgery Progress note- Dr. Dunn Patient seen and examined at bedside. No new complaints at this time. Inguinal hernia easily reducible. Denies Fevers, chills Objective - Vital Signs/Intake and Output Vital Signs (last 24 hours): Temp Pulse Resp BP Pulse Ox 98.3 F 71 18 159/81 H 96 12/21/18 23:58 12/21/18 23:58 12/21/18 23:58 12/21/18 23:58 12/21/18 23:58 - Medications Medications: Current Medications Acetaminophen (Tylenol 325mg Tab) 650 mg PO Q6 PRN PRN Reason: Pain, Mild (1-3) Acetaminophen (Tylenol 325mg Tab) 650 mg PO Q6 PRN PRN Reason: Fever >100.4 F Amlodipine Besylate (Norvasc) 10 mg PO DAILY [facility] Aspirin (Ecotrin) 81 mg PO DAILY [facility] Atenolol (Tenormin) 50 mg PO DAILY [facility] Atorvastatin Calcium (Lipitor) 20 mg PO HS [facility] Last Admin: 12/21/18 23:49 Dose: 20 mg Chlorthalidone (Hygroton) 25 mg PO DAILY [facility] Enoxaparin Sodium (Lovenox) 40 mg SC DAILY [facility]; Protocol Ergocalciferol (Drisdol 50,000 Intl Units Cap) 1 cap PO QWK [facility] Fenofibrate (Tricor) 145 mg PO DAILY [facility] Ferrous Sulfate (Feosol) 325 mg PO BID [facility] Last Admin: 12/21/18 18:14 Dose: 325 mg Folic Acid (Folic Acid) 1 mg PO DAILY [facility] Sodium Chloride (Sodium Chloride 0.9%) 1,000 mls @ 100 mls/hr IV .Q10H [facility] Last Admin: 12/21/18 21:53 Dose: 100 mls/hr Insulin Human Regular (Humulin R) 0 units SC ACCU-CHECK [facility]; Protocol Last Admin: 12/22/18 07:32 Dose: Not Given Losartan Potassium (Cozaar) 50 mg PO DAILY [facility] Multivitamins/Minerals (Therapeutic-M Tab) 1 tab PO DAILY [facility] Ondansetron HCl (Zofran Inj) 4 mg IVP Q6 PRN PRN Reason: Nausea/Vomiting Pantoprazole Sodium (Protonix Ec Tab) 40 mg PO DAILY [facility] Sertraline HCl (Zoloft) 50 mg PO DAILY [facility] Thiamine HCl (Vitamin B1 Tab) 100 mg PO DAILY [facility] - Labs Labs: 12/22/18 05:35 12/22/18 05:35 - Constitutional Appears: Non-toxic, No Acute Distress - Head Exam Head Exam: ATRAUMATIC - Eye Exam Eye Exam: EOMI. absent: Scleral icterus - ENT Exam ENT Exam: Mucous Membranes Moist - Cardiovascular Exam Cardiovascular Exam: REGULAR RHYTHM. absent: Bradycardia, Tachycardia - GI/Abdominal Exam GI & Abdominal Exam: Soft, Hernia (non-obstructing, reducible hernia). absent: Guarding, Rigid, Tenderness - Neurological Exam Neurological Exam: Alert, Awake, Oriented x3 - Psychiatric Exam Psychiatric exam: Normal Affect - Skin Skin Exam: Intact, Warm Assessment and Plan - Assessment and Plan (Free Text) Assessment: 68 M w/ Reducible Inguinal Hernia and gastric/duodenal thickening on CT Plan: - c/s GI; all recs appreciated- recommend biopsy - hernia reducible - will need medical clearance prior to herniorapphy - SCD - protonix - CEA, CA19-9 - discussed with Dr. Verma PGY2 <Charles Vargas - Last Filed: 12/24/18 14:06> Objective - Vital Signs/Intake and Output Vital Signs (last 24 hours): Temp Pulse Resp BP Pulse Ox 97.9 F 70 20 126/77 94 L 12/24/18 08:49 12/24/18 09:25 12/24/18 08:49 12/24/18 09:25 12/24/18 08:49 - Medications Medications: Current Medications Acetaminophen (Tylenol 325mg Tab) 650 mg PO Q6 PRN PRN Reason: Pain, Mild (1-3) Acetaminophen (Tylenol 325mg Tab) 650 mg PO Q6 PRN PRN Reason: Fever >100.4 F Amlodipine Besylate (Norvasc) 10 mg PO DAILY [facility] Last Admin: 12/24/18 09:25 Dose: 10 mg Atenolol (Tenormin) 50 mg PO DAILY [facility] Last Admin: 12/24/18 09:25 Dose: 50 mg Atorvastatin Calcium (Lipitor) 20 mg PO HS [facility] Last Admin: 04/19/19 21:46 Dose: 20 mg Chlorthalidone (Hygroton) 25 mg PO DAILY [facility] Last Admin: 12/24/18 09:24 Dose: 25 mg Ergocalciferol (Drisdol 50,000 Intl Units Cap) 1 cap PO QWK [facility] Last Admin: 12/24/18 09:28 Dose: 1 cap Fenofibrate (Tricor) 145 mg PO DAILY [facility] Last Admin: 12/24/18 09:25 Dose: 145 mg Ferrous Sulfate (Feosol) 325 mg PO BID [facility] Last Admin: 12/24/18 09:24 Dose: 325 mg Folic Acid (Folic Acid) 1 mg PO DAILY [facility] Last Admin: 12/24/18 09:25 Dose: 1 mg Sodium Chloride (Sodium Chloride 0.9%) 1,000 mls @ 100 mls/hr IV .Q10H [facility] Last Admin: 12/24/18 05:00 Dose: Not Given Insulin Human Regular (Humulin R) 0 units SC ACCU-CHECK [facility]; Protocol Last Admin: 12/24/18 12:41 Dose: 1 unit Losartan Potassium (Cozaar) 50 mg PO DAILY [facility] Last Admin: 12/24/18 09:25 Dose: 50 mg Multivitamins/Minerals (Therapeutic-M Tab) 1 tab PO DAILY [facility] Last Admin: 12/24/18 09:24 Dose: 1 tab Ondansetron HCl (Zofran Inj) 4 mg IVP Q6 PRN PRN Reason: Nausea/Vomiting Pantoprazole Sodium (Protonix Ec Tab) 40 mg PO BID [facility] Last Admin: 12/24/18 09:26 Dose: 40 mg Sertraline HCl (Zoloft) 50 mg PO DAILY [facility] Last Admin: 12/24/18 09:29 Dose: 50 mg Sucralfate (Carafate Oral Susp) 1 gm PO QID [facility] Last Admin: 12/24/18 12:40 Dose: 1 gm Thiamine HCl (Vitamin B1 Tab) 100 mg PO DAILY [facility] Last Admin: 12/24/18 09:24 Dose: 100 mg - Labs Labs: 12/22/18 05:35 12/22/18 05:35 Assessment and Plan - Assessment and Plan (Free Text) Plan: All medical record entries made by the resident were at my direction. I have reviewed the chart and agree that the record accurately reflects my personal performance of the history, physical exam, and medical decision making.
[2018-12-22] MEDS: Pantoprazole 40 mg EC Tab PO SCH (08:54)
[2018-12-22] MEDS ORDERED: Enoxaparin 40 mg Syringe SC SCH (09:00)
[2018-12-22] MEDS: Multivitamin With Minerals Tab PO SCH (10:41)
[2018-12-22] MEDS: Sodium Chloride 0.9% 1,000 ML IV SCH ×3 (15:23→23:00)
[2018-12-22 17:44] LABS: FOLATE > 20.0 ng/mL
--- NOTE | 2018-12-23 02:57 | PN ---
DATE: 12/22/2018 SUBJECTIVE: The patient is seen today, 12/22/2018. He is not in any cardiopulmonary distress. OBJECTIVE: VITAL SIGNS: The patient is having a blood pressure of 134/82, temperature 97.9, respiratory rate 20, and pulse 77. HEENT: Pupils equal and reactive to light. Normal-appearing mucosa of the conjunctivae, oropharynx, and nasal membrane mucosa. NECK: Supple. No JVD. No carotid bruit. No lymph node. No thyromegaly. CHEST AND LUNGS: Bilateral symmetrical expansion. Good air exchange. No rales, no rhonchi. CARDIOVASCULAR SYSTEM: PMI not localized. S1, S2. No additional sounds. ABDOMEN: Normoactive bowel sounds. No tenderness, no organomegaly, no masses. EXTREMITIES: No cyanosis, no clubbing, no edema. CENTRAL NERVOUS SYSTEM: Alert, awake, and oriented x2. No neurological deficit could be appreciated. ASSESSMENT: 1. Failure to thrive, duodenitis/gastritis, right inguinal hernia with possible intermittent incarceration. 2. Hypertension. Resume the patient's antihypertensive medications. 3. Type 2 diabetes mellitus. We will do Accu-Cheks with insulin coverage. PLAN: Discussed with carpenter railcar who will plan for EGD tomorrow morning. The patient also was seen by Surgery, and we will follow the recommendations. Physical therapy. Shara Heaton MD
[2018-12-23] MEDS: Sodium Chloride 0.9% 1,000 ML IV SCH ×3 (05:15→19:00)
--- NOTE | 2018-12-23 09:16 | CP.PCM.PN ---
<Navin Gutierrez - Last Filed: 12/23/18 09:14> Subjective - Date & Time of Evaluation Date of Evaluation: 12/23/18 Time of Evaluation: 09:14 - Subjective Subjective: Surgery Progress note- Dr. Dunn Patient seen and examined at bedside. Showered this AM. Patient schedule for scope today w/ GI. Remains NPO at this time. No new complaints. Denies Fevers, chills, chest pain, shortness of breath Objective - Vital Signs/Intake and Output Vital Signs (last 24 hours): Temp Pulse Resp BP Pulse Ox 97.7 F 67 20 116/68 95 12/23/18 08:47 12/23/18 08:47 12/23/18 08:47 12/23/18 08:47 12/23/18 08:47 - Medications Medications: Current Medications Acetaminophen (Tylenol 325mg Tab) 650 mg PO Q6 PRN PRN Reason: Pain, Mild (1-3) Acetaminophen (Tylenol 325mg Tab) 650 mg PO Q6 PRN PRN Reason: Fever >100.4 F Amlodipine Besylate (Norvasc) 10 mg PO DAILY [facility] Last Admin: 12/22/18 08:53 Dose: 10 mg Atenolol (Tenormin) 50 mg PO DAILY [facility] Last Admin: 12/22/18 10:41 Dose: 50 mg Atorvastatin Calcium (Lipitor) 20 mg PO HS [facility] Last Admin: 12/22/18 21:00 Dose: 20 mg Chlorthalidone (Hygroton) 25 mg PO DAILY [facility] Last Admin: 12/22/18 10:40 Dose: 25 mg Ergocalciferol (Drisdol 50,000 Intl Units Cap) 1 cap PO QWK [facility] Fenofibrate (Tricor) 145 mg PO DAILY [facility] Last Admin: 12/22/18 10:40 Dose: 145 mg Ferrous Sulfate (Feosol) 325 mg PO BID [facility] Last Admin: 12/22/18 16:55 Dose: 325 mg Folic Acid (Folic Acid) 1 mg PO DAILY [facility] Last Admin: 12/22/18 08:54 Dose: 1 mg Sodium Chloride (Sodium Chloride 0.9%) 1,000 mls @ 100 mls/hr IV .Q10H [facility] Last Admin: 12/23/18 05:15 Dose: 100 mls/hr Insulin Human Regular (Humulin R) 0 units SC ACCU-CHECK [facility]; Protocol Last Admin: 12/22/18 23:00 Dose: Not Given Losartan Potassium (Cozaar) 50 mg PO DAILY [facility] Last Admin: 12/22/18 10:40 Dose: 50 mg Multivitamins/Minerals (Therapeutic-M Tab) 1 tab PO DAILY [facility] Last Admin: 12/22/18 10:41 Dose: 1 tab Ondansetron HCl (Zofran Inj) 4 mg IVP Q6 PRN PRN Reason: Nausea/Vomiting Pantoprazole Sodium (Protonix Ec Tab) 40 mg PO DAILY [facility] Last Admin: 12/22/18 08:54 Dose: 40 mg Sertraline HCl (Zoloft) 50 mg PO DAILY [facility] Last Admin: 12/22/18 10:41 Dose: 50 mg Thiamine HCl (Vitamin B1 Tab) 100 mg PO DAILY [facility] Last Admin: 12/22/18 10:41 Dose: 100 mg - Labs Labs: 12/22/18 05:35 12/22/18 05:35 - Constitutional Appears: Non-toxic, No Acute Distress - Head Exam Head Exam: ATRAUMATIC - Eye Exam Eye Exam: EOMI. absent: Scleral icterus - ENT Exam ENT Exam: Mucous Membranes Moist - Respiratory Exam Respiratory Exam: NORMAL BREATHING PATTERN. absent: Accessory Muscle Use, Respiratory Distress - Cardiovascular Exam Cardiovascular Exam: REGULAR RHYTHM. absent: Bradycardia, Tachycardia - GI/Abdominal Exam GI & Abdominal Exam: Soft, Hernia (easily reducible). absent: Distended, Firm, Rigid - Neurological Exam Neurological Exam: Alert, Awake, Oriented x3 - Skin Skin Exam: Intact, Warm Assessment and Plan - Assessment and Plan (Free Text) Assessment: 68 M w/ Reducible Inguinal Hernia and gastric/duodenal thickening on CT Plan: - c/s GI; all recs appreciated- Plan for Scope today - hernia reducible - will need medical clearance prior to herniorapphy - will monitor closely - discussed with Dr. Verma PGY2 <Charles Vargas - Last Filed: 12/24/18 14:16> Objective - Vital Signs/Intake and Output Vital Signs (last 24 hours): Temp Pulse Resp BP Pulse Ox 97.9 F 70 20 126/77 94 L 12/24/18 08:49 12/24/18 09:25 12/24/18 08:49 12/24/18 09:25 12/24/18 08:49 - Medications Medications: Current Medications Acetaminophen (Tylenol 325mg Tab) 650 mg PO Q6 PRN PRN Reason: Pain, Mild (1-3) Acetaminophen (Tylenol 325mg Tab) 650 mg PO Q6 PRN PRN Reason: Fever >100.4 F Amlodipine Besylate (Norvasc) 10 mg PO DAILY [facility] Last Admin: 12/24/18 09:25 Dose: 10 mg Atenolol (Tenormin) 50 mg PO DAILY [facility] Last Admin: 12/24/18 09:25 Dose: 50 mg Atorvastatin Calcium (Lipitor) 20 mg PO HS [facility] Last Admin: 12/23/18 21:46 Dose: 20 mg Chlorthalidone (Hygroton) 25 mg PO DAILY [facility] Last Admin: 12/24/18 09:24 Dose: 25 mg Ergocalciferol (Drisdol 50,000 Intl Units Cap) 1 cap PO QWK [facility] Last Admin: 12/24/18 09:28 Dose: 1 cap Fenofibrate (Tricor) 145 mg PO DAILY [facility] Last Admin: 12/24/18 09:25 Dose: 145 mg Ferrous Sulfate (Feosol) 325 mg PO BID [facility] Last Admin: 12/24/18 09:24 Dose: 325 mg Folic Acid (Folic Acid) 1 mg PO DAILY [facility] Last Admin: 12/24/18 09:25 Dose: 1 mg Sodium Chloride (Sodium Chloride 0.9%) 1,000 mls @ 100 mls/hr IV .Q10H [facility] Last Admin: 12/24/18 05:00 Dose: Not Given Insulin Human Regular (Humulin R) 0 units SC ACCU-CHECK [facility]; Protocol Last Admin: 12/24/18 12:41 Dose: 1 unit Losartan Potassium (Cozaar) 50 mg PO DAILY [facility] Last Admin: 12/24/18 09:25 Dose: 50 mg Multivitamins/Minerals (Therapeutic-M Tab) 1 tab PO DAILY [facility] Last Admin: 12/24/18 09:24 Dose: 1 tab Ondansetron HCl (Zofran Inj) 4 mg IVP Q6 PRN PRN Reason: Nausea/Vomiting Pantoprazole Sodium (Protonix Ec Tab) 40 mg PO BID [facility] Last Admin: 12/24/18 09:26 Dose: 40 mg Sertraline HCl (Zoloft) 50 mg PO DAILY [facility] Last Admin: 12/24/18 09:29 Dose: 50 mg Sucralfate (Carafate Oral Susp) 1 gm PO QID [facility] Last Admin: 12/24/18 12:40 Dose: 1 gm Thiamine HCl (Vitamin B1 Tab) 100 mg PO DAILY [facility] Last Admin: 12/24/18 09:24 Dose: 100 mg - Labs Labs: 12/22/18 05:35 12/22/18 05:35 Assessment and Plan - Assessment and Plan (Free Text) Plan: All medical record entries made by the resident were at my direction. I have reviewed the chart and agree that the record accurately reflects my personal performance of the history, physical exam, and medical decision making.
[2018-12-23] MEDS: Pantoprazole 40 mg EC Tab PO SCH ×2 (09:28→17:52)
[2018-12-23] MEDS: Insulin Regular 100 units/ml SC SCH ×4 (09:28→23:11)
[2018-12-23] MEDS: Multivitamin With Minerals Tab PO SCH ×2 (09:29→17:53)
[2018-12-23] MEDS ORDERED: Lactated Ringer's 500 ML IV ONE (10:55)
[2018-12-23 11:44] VITALS: BMI 20.5
[2018-12-23] MEDS ORDERED: Midazolam 2 MG/2 ML VIAL ONE (11:45)
[2018-12-23] MEDS ORDERED: Propofol 10 mg/ml Inj (20 ML) ONE (11:46)
[2018-12-23] MEDS: Sucralfate 1 gm/10 ml Oral Susp UD PO SCH ×3 (17:19→21:45)
[2018-12-24] MEDS: Sodium Chloride 0.9% 1,000 ML IV SCH (05:00)
[2018-12-24] MEDS: Insulin Regular 100 units/ml SC SCH ×2 (06:47→12:41)
[2018-12-24 08:50] VITALS: BP 126/77; PULSE 70; RESP 20; TEMP 97.9; O2SAT 94
[2018-12-24] MEDS: Sucralfate 1 gm/10 ml Oral Susp UD PO SCH ×2 (09:24→12:40)
[2018-12-24] MEDS: Multivitamin With Minerals Tab PO SCH (09:24)
[2018-12-24] MEDS: Pantoprazole 40 mg EC Tab PO SCH (09:26)
--- NOTE | 2018-12-24 14:18 | CP.PCM.PN ---
Subjective - Date & Time of Evaluation Date of Evaluation: 12/24/18 Time of Evaluation: 14:17 - Subjective Subjective: no overnight events Objective - Vital Signs/Intake and Output Vital Signs (last 24 hours): Temp Pulse Resp BP Pulse Ox 97.9 F 70 20 126/77 94 L 12/24/18 08:49 12/24/18 09:25 12/24/18 08:49 12/24/18 09:25 12/24/18 08:49 - Medications Medications: Current Medications Acetaminophen (Tylenol 325mg Tab) 650 mg PO Q6 PRN PRN Reason: Pain, Mild (1-3) Acetaminophen (Tylenol 325mg Tab) 650 mg PO Q6 PRN PRN Reason: Fever >100.4 F Amlodipine Besylate (Norvasc) 10 mg PO DAILY [facility] Last Admin: 12/24/18 09:25 Dose: 10 mg Atenolol (Tenormin) 50 mg PO DAILY [facility] Last Admin: 12/24/18 09:25 Dose: 50 mg Atorvastatin Calcium (Lipitor) 20 mg PO HS [facility] Last Admin: 12/23/18 21:46 Dose: 20 mg Chlorthalidone (Hygroton) 25 mg PO DAILY [facility] Last Admin: 12/24/18 09:24 Dose: 25 mg Ergocalciferol (Drisdol 50,000 Intl Units Cap) 1 cap PO QWK [facility] Last Admin: 12/24/18 09:28 Dose: 1 cap Fenofibrate (Tricor) 145 mg PO DAILY [facility] Last Admin: 12/24/18 09:25 Dose: 145 mg Ferrous Sulfate (Feosol) 325 mg PO BID [facility] Last Admin: 12/24/18 09:24 Dose: 325 mg Folic Acid (Folic Acid) 1 mg PO DAILY [facility] Last Admin: 12/24/18 09:25 Dose: 1 mg Sodium Chloride (Sodium Chloride 0.9%) 1,000 mls @ 100 mls/hr IV .Q10H [facility] Last Admin: 12/24/18 05:00 Dose: Not Given Insulin Human Regular (Humulin R) 0 units SC ACCU-CHECK [facility]; Protocol Last Admin: 12/24/18 12:41 Dose: 1 unit Losartan Potassium (Cozaar) 50 mg PO DAILY [facility] Last Admin: 12/24/18 09:25 Dose: 50 mg Multivitamins/Minerals (Therapeutic-M Tab) 1 tab PO DAILY [facility] Last Admin: 12/24/18 09:24 Dose: 1 tab Ondansetron HCl (Zofran Inj) 4 mg IVP Q6 PRN PRN Reason: Nausea/Vomiting Pantoprazole Sodium (Protonix Ec Tab) 40 mg PO BID [facility] Last Admin: 12/24/18 09:26 Dose: 40 mg Sertraline HCl (Zoloft) 50 mg PO DAILY [facility] Last Admin: 12/24/18 09:29 Dose: 50 mg Sucralfate (Carafate Oral Susp) 1 gm PO QID [facility] Last Admin: 12/24/18 12:40 Dose: 1 gm Thiamine HCl (Vitamin B1 Tab) 100 mg PO DAILY [facility] Last Admin: 12/24/18 09:24 Dose: 100 mg - Labs Labs: 12/22/18 05:35 12/22/18 05:35 - Head Exam Head Exam: NORMOCEPHALIC - Respiratory Exam Respiratory Exam: Clear to Ausculation Bilateral, NORMAL BREATHING PATTERN - GI/Abdominal Exam GI & Abdominal Exam: Soft, Normal Bowel Sounds Assessment and Plan - Assessment and Plan (Free Text) Assessment: 68 yo male with UGIB duodenal ulcer ppi q12 carafate ADAT egd in 8 weeks
--- NOTE | 2018-12-24 22:47 | CON ---
DATE: 12/22/2018 REFERRING DOCTOR: . HISTORY OF PRESENT ILLNESS: This is a 68-year-old male with a history hypertension, diabetes, , dyslipidemia, and alcohol abuse, brought in for poor oral intake and abdominal discomfort with some diarrhea. The patient is lying in bed comfortably, tolerating diet, in no apparent distress. PAST MEDICAL HISTORY: As above. PAST SURGICAL HISTORY: As above. MEDICATIONS: Have been reviewed. REVIEW OF SYSTEMS: All other systems have been reviewed and negative apart from the HPI. PHYSICAL EXAMINATION: VITAL SIGNS: Here in the hospital are grossly unremarkable. GENERAL: Pleasant elderly male lying in bed comfortably in no apparent distress.. HEENT: Head: Normocephalic and atraumatic. Eyes: Pupils are equal and reactive to light bilaterally. No conjunctival pallor or icterus.. NECK: Supple. Normal range of motion. No lymph nodes appreciated. LUNGS: Coarse breath sounds bilaterally. HEART: S1 and S2, regular rate and rhythm. No murmurs appreciated. ABDOMEN: Soft, nontender. Bowel sounds present. No rebound. No guarding.. No discomfort. RECTAL: Deferred. EXTREMITIES: Pulse felt bilaterally. SKIN: Warm, dry and intact. NEUROLOGICAL: A and Od x3. LABORATORY DATA: Labs and radiology have been reviewed. WBC 11.7, hemoglobin 14.3, hematocrit 42.4. LFTs are grossly unremarkable. CAT scan of the abdomen and pelvis shows duodenal thickening thickened as well and dilatation. ASSESSMENT AND PLAN: Antral duodenal thickening. This is a 68-year-old male with CAT scan evidence of duodenal wall thickening. Plan for endoscopy in the morning. Guillaume Tuttle MD/ PhD
--- NOTE | 2018-12-26 07:17 | DS ---
REASON FOR ADMISSION This is a 68-year-old male with history of multiple medical problems, was admitted for failure to thrive with decreased oral intake and weight loss. COURSE OF HOSPITALIZATION: The patient was admitted to medical floor and he had a CAT scan done in the emergency room that showed nonspecific duodenitis and gastritis as well as right inguinal hernia. The patient had a GI consultation done by Dr. Tuttle and surgical consult done by Dr. Dunn. The patient underwent EGD that showed the gastritis. The patient was placed on proton pump inhibitors and he was discharged. The patient was started on physical therapy and speech therapy. 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 The patient was stable and he was discharged to subacute rehabilitation at [facility] in a stable condition. FINAL DIAGNOSES: 1. Duodenitis/gastritis. 2. Right nonobstructing inguinal hernia. 3. Type 2 diabetes mellitus. 4. Hypertension. 5. Status post cerebrovascular accident. Shara Heaton MD
== END 2018-12-24 15:20 | DRG 391 ==
LOC: H.ER 12:18 → H.ERHOLD 15:09 → H.MEDSURG1 18:32
PROVIDERS: ADMIT Internal Medicine; ATTEND Internal Medicine
PROC: 0DB68ZX Excision of Stomach, Via Natural or Artificial Opening Endoscopic, Diagnostic (ICD-10-PCS; 2018-12-23)
PROC: 0DB58ZX Excision of Esophagus, Via Natural or Artificial Opening Endoscopic, Diagnostic (ICD-10-PCS; 2018-12-23)
PROC: 0DB98ZX Excision of Duodenum, Via Natural or Artificial Opening Endoscopic, Diagnostic (ICD-10-PCS; principal; 2018-12-23 14:00)
DX: K29.80 Duodenitis without bleeding (principal); K26.4 Chronic or unspecified duodenal ulcer with hemorrhage; K26.9 Duodenal ulcer, unspecified as acute or chronic, without hemorrhage or perforation; K29.70 Gastritis, unspecified, without bleeding; R62.7 Adult failure to thrive; I69.320 Aphasia following cerebral infarction; K40.91 Unilateral inguinal hernia, without obstruction or gangrene, recurrent; E11.9 Type 2 diabetes mellitus without complications; K22.2 Esophageal obstruction; K22.8 Other specified diseases of esophagus; E78.00 Pure hypercholesterolemia, unspecified; E78.5 Hyperlipidemia, unspecified; I10 Essential (primary) hypertension; K40.90 Unilateral inguinal hernia, without obstruction or gangrene, not specified as recurrent; N28.1 Cyst of kidney, acquired; I69.391 Dysphagia following cerebral infarction; Z79.82 Long term (current) use of aspirin; Z87.891 Personal history of nicotine dependence; Z91.14 Patient's other noncompliance with medication regimen; F10.10 Alcohol abuse, uncomplicated; M19.90 Unspecified osteoarthritis, unspecified site; Z79.84 Long term (current) use of oral hypoglycemic drugs; Z79.899 Other long term (current) drug therapy; R05 Cough; R63.4 Abnormal weight loss